=== PATIENT | male | born 1985 | race African-American/Black ===

== ENCOUNTER 2019-10-21 13:28 | Inpatient (IN) | payer MEDICARE, OTHER ==
[~2019-10-21] VITALS: Ht 190.5 cm; Wt 109.3 kg
--- NOTE | 2019-10-21 13:50 | NUR ---
DANY 60 FROM [address] STREETS C/O METH USED AND ACTING BIZARRE BEHAVIOR. PATIENT RESPONSIVE TO STIMULI. BREATHING EVEN AND UNLABORED, TACHYCARDIC. ATTACHED TO THE ACTIVITY DIRECTOR. SITTER AT BEDSIDE.
[2019-10-21] MEDS ORDERED: OLANZAPINE 10 MG VIAL IM ONE ×2 (14:42→15:00)
[2019-10-21] MEDS ORDERED: diphenhydrAMINE HCL 50 MG/ML VIAL ONE (15:00)
[2019-10-21] MEDS ORDERED: LORAZEPAM INJ 2 MG/ML VIAL ONE (15:00)
[2019-10-21] MEDS ORDERED: HALOPERIDOL LACTATE INJ 5 MG/ML VIAL ONE (15:08)
[2019-10-21] MEDS ORDERED: LORAZEPAM INJ 2 MG/ML VIAL IM ONE (15:30)
[2019-10-21] MEDS ORDERED: HALOPERIDOL LACTATE INJ 5 MG/ML VIAL IM ONE (15:30)
[2019-10-21] MEDS ORDERED: diphenhydrAMINE HCL 50 MG/ML VIAL IM ONE (15:30)
[2019-10-21 15:38] LABS: APPEARANCE,URINE Slightly Cloudy (CLEAR); BILIRUBIN,URINE SMALL (NEGATIVE); BLOOD, URINE Trace-intact Ery/uL (NEGATIVE); KETONES,URINE Negative (NEGATIVE); LEUKOCYTE ESTERASE ,URINE Negative (NEGATIVE); NITRITE, URINE Negative (NEGATIVE); PH,URINE 5.5 (5.0-8.0); PROTEIN,URINE 100 mg/dl (NEGATIVE); UGLUCOSE Negative (NEGATIVE)
[2019-10-21 15:39] LABS: COLOR,URINE DARK YELLOW (YELLOW)
[2019-10-21 15:45] LABS: BACTERIA,URINE Few /HPF (None Seen); SQUAMOUS EPITHELIAL CELL,UR Few /HPF (None Seen); URINE AMORPHOUS URATE Moderate /HPF (None Seen)
[2019-10-21 15:59] LABS: BASOPHILS % (AUTO) 0.2 % (0.0-2.0); EOSINOPHILS % (AUTO) 0.1 % (0.0-6.0); HEMATOCRIT 44 % (39-51); HEMOGLOBIN 14.2 g/dL (13.5-17.5); LYMPHOCYTES # (AUTO) 1.4 /CMM (0.8-4.8); LYMPHOCYTES % (AUTO) 8.5 % (20.0-44.0); MEAN CORPUSCULAR HGB CONC 32 g/dl (31.0-36.0); MEAN CORPUSCULAR VOLUME 101 fL (80-96); MONOCYTES # (AUTO) 1.2 /CMM (0.1-1.30); MONOCYTES % (AUTO) 7.5 % (2.0-12.0); NEUTROPHILS # (AUTO) 13.8 /CMM (1.8-8.9); NEUTROPHILS % (AUTO) 83.7 % (43.0-81.0); PLATELET COUNT (AUTO) 285 /CMM (150-450); RED BLOOD CELL COUNT(AUTO) 4.38 MIL/uL (4.5-6.0); WHITE BLOOD COUNT (AUTO) 16.5 K/uL (4.3-11.0)
[2019-10-21 16:06] LABS: CALCIUM, SERUM 10.7 mg/dL (8.5-10.1); CARBON DIOXIDE 15 mmol/L (21-32); CHLORIDE 102 mmol/L (98-107); CREATININE 2.3 mg/dL (0.6-1.3); GLUCOSE 104 mg/dL (74-106); POTASSIUM 4.3 mmol/L (3.5-5.1); SODIUM SERUM 141 mmol/L (136-145); UREA NITROGEN, BLOOD 20 mg/dL (7-18)
[2019-10-21 16:12] LABS: ALANINE AMINOTRANSFERASE 147 U/L (12-78); ALBUMIN 4.2 g/dL (3.4-5.0); ALKALINE PHOSPHATASE 125 U/L (46-116); ASPARTATE AMINOTRANSFERASE 138 U/L (15-37); BILIRUBIN,DIRECT 0.3 mg/dL (0.0-0.2); BILIRUBIN,TOTAL 0.7 mg/dL (0.2-1.0)
[2019-10-21] MEDS ORDERED: IV NS 0.9% 1,000 ML IV ONE ×2 (16:30→17:30)
[2019-10-21 16:33] LABS: ACETAMINOPHEN < 2 ug/ml (10-30); ALCOHOL, BLOOD < 3 mg/dL (0-0)
--- NOTE | 2019-10-21 16:58 | NUR ---
PATIENT'S STILL HYPOTENSIVE, DR. GOODRICH MADE AWARE AND GAVE AN ORDER FOR ANOTHER 1LITER OF NORMAL SALINE.
--- NOTE | 2019-10-21 18:35 | NUR ---
PATIENT ASLEEP, BUT EASILY AROUSABLE. NO DISTRESS NOTED. VITALS STABLE.
--- NOTE | 2019-10-21 19:53 | NUR ---
ENDORSED TO KATERINE SIMONS FOR JEAN MARIE.
--- NOTE | 2019-10-21 20:29 | NUR ---
COVID SWAB SAMPLE COLLECTED AND SENT TO THE LAB.
[2019-10-21] MEDS ORDERED: HYDROCODONE/APAP 5/325MG TABLET PO PRN (20:30)
[2019-10-21] MEDS ORDERED: ACETAMINOPHEN 325 MG TABLET PO PRN (20:30)
[2019-10-21] MEDS ORDERED: MAG HYDROX/AL HYDROX/SIMETH 30 ML UDC PO PRN (20:30)
[2019-10-21] MEDS ORDERED: ONDANSETRON HCL/PF 4 MG/2 ML VIAL IVP PRN (20:30)
[2019-10-21] MEDS ORDERED: MAGNESIUM HYDROXIDE 30 ML UDC PO PRN (20:30)
--- NOTE | 2019-10-21 20:55 | NUR ---
REPORT CALLED TO SHREDDED FILLER CIGAR MAKER MACHINE MARK. WILL TRANSPORT PT VIA ACLS PROTOCOL.
[2019-10-21 21:15] VITALS: BP 136/77
--- NOTE | 2019-10-21 21:15 | NUR ---
RN NOTE PT ARRIVED FROM ER VIA GURNEY ACCOMPANIED BY 2 RNS AND TRANSFERRED TO BED VIA 2 PERSON ASSIST. PT IS CURRENTLY SLEEPING BUT AROUSABLE TO TACTILE STIMULI. RESPIRATIONS EVEN AND UNLABORED WHILE ON 2L OF O2 VIA NC. WITH LOTT CATHETER IN PLACE DRAINING CLOUDY PINK TINGED URINE. WITH 20G IV ON LEFT AC. FLUSHES WELL. COMPREHENSIVE PHYSICAL ASSESSMENT COMPLETED. CALL LIGHT WITHIN REACH, BED ALARM ON, BED IN LOWEST POSITION, SAFETY MEASURES IN PLACE, WILL MONITOR PATIENT.
[2019-10-21 21:20] VITALS: BP 136/72
[2019-10-21] MEDS: IV NS 0.9% 1,000 ML IV PRN (22:09)
[2019-10-22] VITALS (7 sets, daily range): BP systolic 130–157; BP diastolic 66–90
[2019-10-22] MEDS ORDERED: diphenhydrAMINE HCL 50 MG/ML VIAL IM ONE (03:00)
[2019-10-22] MEDS ORDERED: HALOPERIDOL LACTATE INJ 5 MG/ML VIAL IM ONE (03:00)
[2019-10-22] MEDS ORDERED: LORAZEPAM INJ 2 MG/ML VIAL IM ONE (03:00)
--- NOTE | 2019-10-22 03:06 | NUR ---
RN NOTES AROUND 0250 HEARD BED ALARM AND A BANG; WENT TO CHECK BUT PATIENT SUDDENLY CAME OUT OF ROOM 113-2 WENT THROUGH THE PLASTIC THAT SEALS THE ROOM FOR ISOLATION PENDING COVID RESULT. PATIENT BECAME VERY AGGRESSIVE AND AGITATED RUNNING IN THE HALLWAY NAKED; RUN OUT OF THE FACILITY AND WALKED OUTSIDE OF THE FACILITY; KULWANT BUCKLEY CALLED
--- NOTE | 2019-10-22 03:06 | NUR ---
RN NOTE [facility]CEAN TRANSPORTATION INTERMEDIARY GEE AWARE OF PATIENT'S CONDITION WITH NEW ORDER FOR HALDOL 5MG IM, BENADRYL 25MG IM, AND ATIVAN 2MG IM TO BE GIVEN NOW. ORDERS NOTED AND CARRIED OUT WITH ASSISTANCE FROM JACQUARD CARD LACER AND 3 SECURITY PERSONNEL. PT NOTED WITH IV SITE, LOTT CATHETER AND TELE LEADS TO HAVE BEEN PULLED OUT. UNABLE TO REINSERT IV AND LOTT CATHETER AND PLACE TELE LEADS AT THIS TIME DUE TO PT'S AGITATION . [facility] TRANSPORTATION INTERMEDIARY AWARE. WILL MONITOR PATIENT AND REINSERT ONCE SAFETY IS MAINTAINED. IF FLUIDS HELD FOR NOW. Addendum: 10/22/19 at 0333 by XIAO LOCK RN LIME SLUDGE MIXER AWARE.
--- NOTE | 2019-10-22 03:10 | NUR ---
RN NOTE PT STILL SLIGHTLY AGITATED. ALSO NOTED WITH NEW SKIN TEAR ON LEFT HAND. SKIN ABRASION ON RIGHT KNEE NOTED TO BE BIGGER. MINIMAL BLEEDING NOTED. UNABLE TO DRESS WOUNDS AT THIS TIME DUE TO AGITATION AND AGRESSION.
--- NOTE | 2019-10-22 03:55 | NUR ---
RN NOTE PT IS SEDATED BUT EASILY AROUSABLE. ATTEMPTED TO REINSERT IV AND PLACE TELE LEADS BUT PT BECAME SLIGHTLY AGITATED. WILL TRY AGAIN. ABLE TO TAKE VITAL SIGNS WITH ASSISTANCE FROM RESIDENT PHYSICIAN.
--- NOTE | 2019-10-22 05:14 | NUR ---
RN NOTE PT IS SEDATED BUT EASILY AROUSABLE WITH TACTILE AND VERBAL STIMULI. TELE LEADS PLACED ON PATIENT SHOWING SINUS RHYTHM WITH HEART RATE 88. REINSERTED 24G IV ON RIGHT FOOT WITH GOOD VENOUS RETURN. IV FLUIDS RESUMED @ 125ML/HOUR ORDERED. LOTT CATHETER REINSERTED WITHOUT DIFFICULTY AND WITHOUT GOOD URINE OUTPUT NOTED. URINE IS STILL CLOUDY AND PINK TINGED. WILL CONTINUE TO MONITOR PATIENT. Addendum: 10/22/19 at 0643 by XIAO LOCK RN ERROR. GOOD URINE OUTPUT NOTED.
[2019-10-22 06:24] LABS: BASOPHILS % (AUTO) 0.1 % (0.0-2.0); HEMATOCRIT 39 % (39-51); HEMOGLOBIN 12.9 g/dL (13.5-17.5); LYMPHOCYTES # (AUTO) 1.1 /CMM (0.8-4.8); LYMPHOCYTES % (AUTO) 6.3 % (20.0-44.0); MEAN CORPUSCULAR HGB CONC 33 g/dl (31.0-36.0); MEAN CORPUSCULAR VOLUME 98 fL (80-96); MONOCYTES # (AUTO) 1.2 /CMM (0.1-1.30); MONOCYTES % (AUTO) 7.1 % (2.0-12.0); NEUTROPHILS # (AUTO) 14.7 /CMM (1.8-8.9); NEUTROPHILS % (AUTO) 86.5 % (43.0-81.0); PLATELET COUNT (AUTO) 211 /CMM (150-450); RED BLOOD CELL COUNT(AUTO) 3.94 MIL/uL (4.5-6.0)
[2019-10-22 07:03] LABS: ALBUMIN 3.6 g/dL (3.4-5.0); BILIRUBIN,TOTAL 0.9 mg/dL (0.2-1.0); CALCIUM, SERUM 8.7 mg/dL (8.5-10.1); CREATININE 2.9 mg/dL (0.6-1.3); PHOSPHORUS 5.4 mg/dL (2.5-4.9); POTASSIUM 4.2 mmol/L (3.5-5.1); TOTAL PROTEIN, SERUM 8.3 g/dL (6.4-8.2)
[2019-10-22 07:08] LABS: MAGNESIUM 4.6 mg/dL (1.8-2.4)
--- NOTE | 2019-10-22 07:30 | NUR ---
RN OPENING NOTES RECEIVED PATIENT SLEEPING IN BED. VS STABLE WITH NO SIGNS OF ACUTE DISTRESS. PATIENT HAS A HISTORY OF AGGRESSIVE BEHAVIOR, A PERMANENT SITTER IS WATCHING THE PATIENT THROUGHOUT THE SHIFT. PATIENT IS ON EXTERNAL TELEMONITOR; SR HR 90. PATIENT HAS 125 ML/HR OF NS ON 20G IV. ALL SAFETY MEASURES IN PLACE AT THIS TIME. BED LOCKED IN THE LOWEST POSITION. SIDE RAILS UP X2. CALL LIGHT WITHIN REACH. ALL NEEDS RENDERED AT THIS TIME.
[2019-10-22] MEDS: LORAZEPAM INJ 2 MG/ML VIAL IV PRN (08:58)
[2019-10-22] MEDS: IV NS 0.9% 1,000 ML IV PRN ×2 (08:58→17:16)
--- NOTE | 2019-10-22 09:45 | NUR ---
critical VALUE OF (Mg 4.6) HAS BEEN REPORTED TO DOCTOR ROSALINDA MIJARES.
--- NOTE | 2019-10-22 15:47 | NUR ---
Social service consult requested by MD for homelessness. Per chart review and MD notes, pt is a 33-year-old -[place] male sent to the emergency department yesterday from street via rescue ambulance for evaluation of bizarre behavior. Patient was agitated, admitted to amphetamine usage. Due to his aggressiveness patient was sedated in the ER. Patient was found to be in rhabdomyolysis, initial fluid resuscitation started in the ER. Because patient is homeless, ER physician ordered COVID19 swab. MANAGER SAP was informed by case managers Michael, pt is sedated and not able to provide any information at this time. MANAGER SAP to follow up with the pt tomorrow. Pt is pending COVID-19 results.
--- NOTE | 2019-10-22 18:06 | NUR ---
RN CLOSING NOTES PATIENT SLEEPING IN BED. VS STABLE WITH NO SIGNS OF ACUTE DISTRESS. PATIENT HAS A HISTORY OF AGGRESSIVE BEHAVIOR, A PERMANENT SITTER IS WATCHING THE PATIENT. PATIENT IS ON EXTERNAL TELEMONITOR; SR HR 90. PATIENT HAS 125 ML/HR OF NS ON 20G IV ON L LOWER FOOT. ALL SAFETY MEASURES IN PLACE AT THIS TIME. BED LOCKED IN THE LOWEST POSITION. SIDE RAILS UP X2. CALL LIGHT WITHIN REACH. ALL NEEDS RENDERED AT THIS TIME.
--- NOTE | 2019-10-22 20:00 | NUR ---
PUPIL PERSONNEL WORKER NOTE RECEIVED PATIENT SLEEPING IN BED, BREATHING NORMAL NO SOB NOTED. RESPIRATION EVEN NON LABORED. TELE MONITOR READING SR IN 80'S. IV SITE LAC G#20 INTACT PATENT FLUSHING WELL. F/C INTACT DARNING PINK TINGED URINE WITH GRAVITY. ABD SOFT AND NON DISTENDED. SKIN WARM AND DRY TO TOUCH. ALL SAFETY MEASURES IN PLACE, BED IN LOW AND LOCKED POSITION. CALL LIGHT WITHIN REACH. SITTER AT BED SIDE. WILL CONT TO MONITOR.
[2019-10-23] VITALS (7 sets, daily range): BP systolic 110–149; BP diastolic 64–89
[2019-10-23] MEDS: IV NS 0.9% 1,000 ML IV PRN ×2 (02:08→16:27)
--- NOTE | 2019-10-23 06:11 | NUR ---
SECURITY TEST ENGINEER NOTES PATIENT RESTED WELL THROUGHOUT THE SHIFT. NO S/S OF ACUTE DISTRESS NOTED. BREATHING NORMAL NO SOB NOTED. SITTER AT BED SIDE. IV SITE PATENT INTACT NS RUNNING WELL. VITAL SIGNS WNL. NO FEVER NOTED. NO PRN'S WERE GIVEN. F/C INTACT PINK COLOR URINE DARNING WITH GRAVITY. KEPT CLEAN AND COMFORTABLE. ALL NEEDS ARE ATTENDED. ALL SAFETY MEASURES IN PLACE, BED IN LOW AND LOCKED POSITION. CALL LIGHT WITHIN REACH. WILL ENDORSE TO AM NURSE FOR JEAN MARIE.
--- NOTE | 2019-10-23 07:45 | NUR ---
K 12 PRINCIPAL OPENING NOTE RECEIVED PATIENT SLEEPING IN BED. AROUSABLE. NO CARDIAC OR RESPIRATORY DISTRESS NOTED. NO SOB NOTED. SATURATING WELL ON ROOM AIR. BREATHING EVEN AND UNLABORED. TELE MONITOR READING NSR IN 80'S. [facility] NURSE SUPERVISOR NURSE PT ACCIDENTALLY PULLED OUT HIS IV ON L AC. NO BLEEDING ON SITE NOTED. HOWEVER, PER PT, HE DOESNT WANT HIS IV TO BE RE-INSERTED RIGHT NOW. AND TOLD ME TO COME BACK LATER. LOTT CATH IN PLACE. INTACT AND PATENT AND DRAINING WITH CLEAR YELLOW URINE. SAFETY PRECAUTIONS IN PLACE, BED IN LOW AND LOCKED POSITION. SIDE RAILS UP X2. CALL LIGHT WITHIN REACH. SITTER AT BED SIDE. WILL CONT TO MONITOR.
--- NOTE | 2019-10-23 09:42 | NUR ---
WOUND CARE CONSULT: PT PRESENTS WITH LEFT PALM SKIN TEAR AND HEALING DRY ABRASION TO RT KNEE, PRESENT ON ADMISSION. PT DENIES NEED (REFUSED) TO TURN FOR FULL SKIN ASSESSMENT OF BACK AND BUTTOCKS. RECOMMENDATIONS MADE FOR SKIN PROTECTION AND WOUND CARE. DISCUSSED WITH NURSING STAFF. WILL SEE PRN. ALONZO IN AGREEMENT WITH PLAN OF CARE. Addendum: 10/23/19 at 0944 by ELEONORA MENEZES WNDNU Amended: Links added.
--- NOTE | 2019-10-23 11:15 | NUR ---
TRANSFER TO [facility] [place] PT TRANSFERRED TO [facility]. REPORT GIVEN TO SANCHEZ SIMONS. PT IN STABLE CONDITION. STILL AWAITING FOR MIDLINE CATH INSERTION.
--- NOTE | 2019-10-23 11:20 | NUR ---
Received patient via [facility] [employer]. Patient sedated (positive for drugs), responsive to name and touch. On room air saturation above 95%, VS are stable and within baseline. Patient has no IV line ; midline pending. Will continue to monitor
--- NOTE | 2019-10-23 15:10 | NUR ---
Midline inserted , intact patent and flushing well. Will administrate fluids as ordered.
--- NOTE | 2019-10-23 15:16 | NUR ---
RECRUITING SCHEDULER consulted with RONAK Mae and was informed pt is still sedated and unable to participate in an assessment at this time. Warm Handoff provided to SW to f/u on October 25.
[2019-10-23 15:19] LABS: BASOPHILS # (AUTO) 0.1 /CMM (0.0-0.2); BASOPHILS % (AUTO) 0.5 % (0.0-2.0); EOSINOPHILS % (AUTO) 0.3 % (0.0-6.0); HEMATOCRIT 34 % (39-51); HEMOGLOBIN 11.2 g/dL (13.5-17.5); LYMPHOCYTES # (AUTO) 1.9 /CMM (0.8-4.8); LYMPHOCYTES % (AUTO) 12.9 % (20.0-44.0); MEAN CORPUSCULAR HGB CONC 33 g/dl (31.0-36.0); MEAN CORPUSCULAR VOLUME 98 fL (80-96); MONOCYTES # (AUTO) 1.3 /CMM (0.1-1.30); MONOCYTES % (AUTO) 8.8 % (2.0-12.0); NEUTROPHILS # (AUTO) 11.3 /CMM (1.8-8.9); NEUTROPHILS % (AUTO) 77.5 % (43.0-81.0); PLATELET COUNT (AUTO) 215 /CMM (150-450); RED BLOOD CELL COUNT(AUTO) 3.47 MIL/uL (4.5-6.0); WHITE BLOOD COUNT (AUTO) 14.6 K/uL (4.3-11.0)
[2019-10-23 15:56] LABS: CREATININE 6.8 mg/dL (0.6-1.3); PHOSPHORUS 5.9 mg/dL (2.5-4.9); POTASSIUM 4.1 mmol/L (3.5-5.1)
--- NOTE | 2019-10-23 16:41 | NUR ---
Call from lab ; critical Mg 4.0, trending down . Yesterday was 4.6. Jim Ramirez DNP notified
--- NOTE | 2019-10-23 18:55 | NUR ---
Patient in bed , awake , eating dinner at this moment . Breathing unlabored and even on room air , VS are stable. DOMINIC midline with ongoing fluids as ordered. All needs attended, patient kept comfortable. F/c in place with output 800ml. Bed alarm on, safety precautions implemented and call light within reach. Will endorse to next shift for JEAN MARIE.
--- NOTE | 2019-10-23 19:39 | NUR ---
CREATIVE ARTS MUSIC THERAPIST OPENING NOTES PATIENT RECEIVED RESTING IN BED, A/O X1 LETHARGIC IN HIGH FOWLERS POSITION. STABLE ON A WITH BREATHING EVEN AND UNLABORED, NO SOB NOTED. NO SIGNS OF ACUTE DISTRESS. NO COMPLAINTS OF PAIN OR DISCOMFORT. NO SIGNS OF ACUTE DISTRESS- NO FACIAL GRIMACING NOTED. TELE MONITOR READING SR. LOTT NOTED AND IN PLACE WITH BLOOD TINTED URINE. DOMINIC MIDLINE IN PLACE RUNNING NS @ 125 MLL/HR. SAFETY PRECAUTIONS IN PLACE WITH BED IN LOWEST POSITION, CALL LIGHT WITHIN REACH, BREAKS ON, SIDE RAILS UP. WILL CONTINUE TO MONITOR THROUGHOUT THE SHIFT.
[2019-10-24] VITALS: BP_SYST 110; BP_SYST 129; BP_DIAS 60; BP_DIAS 67
[2019-10-24] MEDS: IV NS 0.9% 1,000 ML IV PRN (00:45)
[2019-10-24 04:00] VITALS: BP 132/56
--- NOTE | 2019-10-24 06:46 | NUR ---
POULTRY HANGER CLOSING NOTES PATIENT RESTING IN BED, A/O X1 LETHARGIC IN HIGH FOWLERS POSITION. STABLE ON A WITH BREATHING EVEN AND UNLABORED, NO SOB NOTED. NO SIGNS OF ACUTE DISTRESS. NO COMPLAINTS OF PAIN OR DISCOMFORT. NO SIGNS OF ACUTE DISTRESS- NO FACIAL GRIMACING NOTED. TELE MONITOR READING SR. LOTT NOTED AND IN PLACE WITH BLOOD TINTED URINE. DOMINIC MIDLINE IN PLACE RUNNING NS @ 125 MLL/HR. SAFETY PRECAUTIONS IN PLACE WITH BED IN LOWEST POSITION, CALL LIGHT WITHIN REACH, BREAKS ON, SIDE RAILS UP. ALL NEEDS ATTENDED TO. WILL ENDORSE TO ONCOMING SHIFT ABOUT JEAN MARIE.
[2019-10-24 07:01] LABS: ALBUMIN 2.7 g/dL (3.4-5.0); BILIRUBIN,DIRECT 0.2 mg/dL (0.0-0.2); BILIRUBIN,TOTAL 0.6 mg/dL (0.2-1.0); CALCIUM, SERUM 7.4 mg/dL (8.5-10.1); MAGNESIUM 3.6 mg/dL (1.8-2.4); PHOSPHORUS 4.1 mg/dL (2.5-4.9); POTASSIUM 3.5 mmol/L (3.5-5.1); TOTAL PROTEIN, SERUM 6.8 g/dL (6.4-8.2)
[2019-10-24 07:03] LABS: CREATININE 7.6 mg/dL (0.6-1.3)
--- NOTE | 2019-10-24 07:30 | NUR ---
PT RECEIVED RESTING COMFORTABLY IN BED. NO S/S OR C/O PAIN OR DISTRESS NOTED. SIDE RAILS UP X2, CALL LIGHT LEFT WITHIN REACH. WILL CONTINUE PLAN OF CARE.
[2019-10-24 08:04] VITALS: BP 147/84
[2019-10-24 08:43] LABS: BASOPHILS % (AUTO) 0.2 % (0.0-2.0); EOSINOPHILS % (AUTO) 0.6 % (0.0-6.0); HEMATOCRIT 33 % (39-51); HEMOGLOBIN 11.1 g/dL (13.5-17.5); LYMPHOCYTES # (AUTO) 1.4 /CMM (0.8-4.8); LYMPHOCYTES % (AUTO) 15.5 % (20.0-44.0); MEAN CORPUSCULAR HGB CONC 34 g/dl (31.0-36.0); MEAN CORPUSCULAR VOLUME 98 fL (80-96); MONOCYTES # (AUTO) 0.8 /CMM (0.1-1.30); NEUTROPHILS # (AUTO) 6.7 /CMM (1.8-8.9); NEUTROPHILS % (AUTO) 74.7 % (43.0-81.0); PLATELET COUNT (AUTO) 172 /CMM (150-450); RED BLOOD CELL COUNT(AUTO) 3.34 MIL/uL (4.5-6.0); WHITE BLOOD COUNT (AUTO) 8.9 K/uL (4.3-11.0)
--- NOTE | 2019-10-24 11:00 | NUR ---
IV INSERTION AFTER PT IV FOUND TO BE DISLODGED. IV INTACT, PRESSURE DRESSING APPLIED TO SITE. NEW IV INSERTED. PT ORIENTED TO NEW SITE. NEEDS FREQUENT REORIENTATION.
[2019-10-24] MEDS: Sodium Bicarbonate 100 MEQ in IV D5/0.45 NACL 1,000 ML IV PRN ×2 (12:30→19:40)
[2019-10-24 15:40] LABS: APPEARANCE,URINE CLOUDY (CLEAR); BILIRUBIN,URINE NEGATIVE (NEGATIVE); BLOOD, URINE LARGE Ery/uL (NEGATIVE); COLOR,URINE YELLOW (YELLOW); KETONES,URINE NEGATIVE (NEGATIVE); LEUKOCYTE ESTERASE ,URINE SMALL (NEGATIVE); NITRITE, URINE NEGATIVE (NEGATIVE); PH,URINE 5.5 (5.0-8.0); PROTEIN,URINE >=300 mg/dl (NEGATIVE); UGLUCOSE NEGATIVE (NEGATIVE); UROBILINOGEN,URINE 0.2 EU/dL (0.2)
[2019-10-24 16:12] LABS: BACTERIA,URINE 1+ /HPF (None Seen); SQUAMOUS EPITHELIAL CELL,UR 0-2 /HPF (None Seen); URIC ACID CRYSTALS,URINE Few /HPF (None Seen); WBC,URINE 0-2 /HPF (0-3)
[2019-10-24 16:15] LABS: CREATININE, URINE 88.7 MG/DL (30.0-125.0); EOSINOPHIL,URINE Few; URINE TOTAL PROTEIN 360.8 mg/dL (0-11.9)
[2019-10-24] MEDS ORDERED: HALOPERIDOL LACTATE INJ 5 MG/ML VIAL IM ONE (17:00)
--- NOTE | 2019-10-24 18:13 | NUR ---
CHANGE OF SHIFT REPORT PT RESTING COMFORTABLY IN BED. NO S/S OR C/O PAIN OR DISTRESS NOTED. SIDE RAILS UP X2, CALL LIGHT LEFT WITHIN REACH. PT KEPT CLEAN, DRY, AND COMFORTABLE. NO SIGNIFICANT CHANGES SINCE PREVIOUS SHIFT. WILL GIVE REPORT TO ADA SIMONS.
--- NOTE | 2019-10-24 19:10 | NUR ---
VOCATIONAL REHAB CONSULTANT NOTES RECEIVED PT IN BED RESTING WITH SITTER AT BEDSIDE. PT A/O X1. PT STABLE ON RA BREATHING EVEN AND UNLABORED, NO SOB NOTED. NO COMPLAINTS OF PAIN OR DISCOMFORT. PT WITH LOTT NOTED AND IN PLACE WITH BLOOD TINTED URINE. D512NS WITH BICARB @ 180 CC/HR. SAFETY PRECAUTIONS IN PLACE WITH BED IN LOWEST POSITION, CALL LIGHT WITHIN REACH,WILL CONTINUE TO MONITOR.
[2019-10-24 20:00] VITALS: BP 150/83
--- NOTE | 2019-10-24 23:00 | NUR ---
MS RN NOTES PT FC REMOVED. CONDOM CATH PUT IN PLACE. PT REFUSED TO HAVE NEW FC TO BE INSERTED. WILL CONTINUE OT MONITOR.
[2019-10-25] MEDS: Sodium Bicarbonate 100 MEQ in IV D5/0.45 NACL 1,000 ML IV PRN ×2 (01:24→14:07)
--- NOTE | 2019-10-25 05:48 | NUR ---
MS RN NOTES PT REFUSED MORNING LAB DRAW. LAB WILL TRY AGAIN LATER IN THE AM. WILL CONTINUE TO MONITOR.
--- NOTE | 2019-10-25 07:34 | NUR ---
MS RN NOTES RECEIVED PATIENT IN BED SLEEPING COMFORTABLY. PATIENT IN NO ACUTE DISTRESS. NO SOB NOTED. PATIENT BREATHING IS EVEN AND UNLABORED. PATIENT WITH 1:1 SITTER. PATIENT BED ALARM IS ON. SAFETY PRECAUTIONS IN PLACE. PATIENT BED IS LOCKED AND IN LOWEST POSITION. CALL LIGHT WITHIN REACH. WILL CONTINUE TO MONITOR.
--- NOTE | 2019-10-25 07:40 | NUR ---
MATURITY CHECKER NOTES RECEIVED PT IN BED RESTING WITH SITTER AT BEDSIDE. PT A/O X1. PT STABLE ON RA BREATHING EVEN AND UNLABORED, NO SOB NOTED. NO COMPLAINTS OF PAIN OR DISCOMFORT. D512NS WITH BICARB @ 180 CC/HR. SAFETY PRECAUTIONS IN PLACE WITH BED IN LOWEST POSITION, CALL LIGHT WITHIN REACH,WILL ENDORSE TO ONCOMING NURSE FOR JEAN MARIE.
[2019-10-25 08:00] VITALS: BP 141/77
--- NOTE | 2019-10-25 08:44 | NUR ---
MS RN NOTE PATIENT INITIALLY AGREED TO LAB DRAW. AFTER A COUPLE OF UNSUCCESSFUL ATTEMPTS BY THE QUALITY AUDITOR, THE PATIENT YELLED AND STATED " I DONT WANT YOU TO TRY AGAIN, GET OUT OF HERE, I DONT WANT MY BLOOD DRAWN ANYMORE".
--- NOTE | 2019-10-25 10:00 | NUR ---
MS RN NOTE CRITICAL LAB VALUE CKMB 11.[address] OTERO AND ROSALINDA THOMAS MADE AWARE. NO NEW ORDERS AT THIS TIME. WILL CONTINUE TO MONITOR.
--- NOTE | 2019-10-25 11:26 | NUR ---
MS RN NOTE PATIENT WITH NO LOTT CATHETER AT THIS TIME. PATIENT ATTEMPTED TO REMOVE. PER ROSALINDA THOMAS ORDER FOR NO LOTT CATHETER NEEDED AT THIS TIME.
[2019-10-25 12:43] LABS: BASOPHILS # (AUTO) 0.1 /CMM (0.0-0.2); BASOPHILS % (AUTO) 0.6 % (0.0-2.0); EOSINOPHILS % (AUTO) 0.7 % (0.0-6.0); HEMATOCRIT 33 % (39-51); HEMOGLOBIN 11.3 g/dL (13.5-17.5); LYMPHOCYTES # (AUTO) 1.4 /CMM (0.8-4.8); LYMPHOCYTES % (AUTO) 13.7 % (20.0-44.0); MEAN CORPUSCULAR HGB CONC 34 g/dl (31.0-36.0); MEAN CORPUSCULAR VOLUME 96 fL (80-96); MONOCYTES # (AUTO) 1.1 /CMM (0.1-1.30); NEUTROPHILS # (AUTO) 7.3 /CMM (1.8-8.9); PLATELET COUNT (AUTO) 228 /CMM (150-450); RED BLOOD CELL COUNT(AUTO) 3.43 MIL/uL (4.5-6.0); WHITE BLOOD COUNT (AUTO) 9.9 K/uL (4.3-11.0)
[2019-10-25 12:54] LABS: CALCIUM, SERUM 7.8 mg/dL (8.5-10.1); MAGNESIUM 3.1 mg/dL (1.8-2.4); PHOSPHORUS 4.2 mg/dL (2.5-4.9); POTASSIUM 3.9 mmol/L (3.5-5.1)
[2019-10-25 12:56] LABS: CREATININE 8.2 mg/dL (0.6-1.3)
--- NOTE | 2019-10-25 13:00 | NUR ---
MS RN NOTE ROSALINDA THOMAS CAME AND EVALUATED PATIENT. NOTED WITH RIGHT FLANK WOUND. PER ROSALINDA ORDER FOR BACTROBAN FOR WOUND AND MEPILEX ON TOP.
--- NOTE | 2019-10-25 14:00 | NUR ---
MS RN NOTE PATIENT CREATININE WAS 8.2, NOT CALLED BY LAB. ROSALINDA THOMAS MADE AWARE.
[2019-10-25] MEDS: MUPIROCIN OINT 2% 22 GM TUBE TP SCH (14:05)
--- NOTE | 2019-10-25 18:11 | NUR ---
MS RN NOTE PATIENT REFUSING AFTERNOON VITAL SIGNS. PATIENT GOT AGITATED AND STATED " YOU BETTER NOT DO VITAL SIGNS ON ME, JUST LEAVE ME ALONE". EDUCATED RISKS VS BENEFITS. PATIENT CONTINUED TO REFUSE.
--- NOTE | 2019-10-25 18:57 | NUR ---
MS RN CLOSING NOTES PATIENT IN BED RESTING COMFORTABLY. PATIENT IN NO ACUTE DISTRESS. NO SOB NOTED. PATIENT BREATHING IS EVEN AND UNLABORED. PATIENT WITH 1:1 SITTER. PATIENT BED ALARM IS ON. PATIENT REFUSED WOUND TREATMENT THROUGHOUT SHIFT DESPITE RISKS VS BENEFITS IN IMPORTANCE TO COMPLIANCE. PATIENT CONTINUED TO REFUSE. SAFETY PRECAUTIONS IN PLACE. PATIENT BED IS LOCKED AND IN LOWEST POSITION. CALL LIGHT WITHIN REACH. WILL ENDORSE CARE TO PM SHIFT FOR JEAN MARIE.
--- NOTE | 2019-10-25 19:10 | NUR ---
MOTOR BLOCK MECHANIC NOTES RECEIVED PT IN BED RESTING WITH SITTER AT BEDSIDE. PT A/O X1. PT STABLE ON RA BREATHING EVEN AND UNLABORED, NO SOB NOTED. NO COMPLAINTS OF PAIN OR DISCOMFORT. D512NS WITH BICARB @ 180 CC/HR. SAFETY MEASURES IN PLACE WITH BED IN LOWEST POSITION WITH SIDE RAILS UP X2. CALL LIGHT WITHIN REACH. WILL CONTINUE TO MONITOR. Addendum: 10/25/19 at 2058 by BRADEN HENDERSON RN MS RN NOTES
[2019-10-25 20:00] VITALS: BP 159/92
--- NOTE | 2019-10-25 20:59 | NUR ---
MS RN NOTES PT REFUSED PHOTOS AT THIS TIME. WILL CONTINUE TO MONITOR.
[2019-10-25] MEDS: LORAZEPAM INJ 2 MG/ML VIAL IV PRN (23:29)
[2019-10-26] MEDS: MUPIROCIN OINT 2% 22 GM TUBE TP SCH ×2 (00:09→12:18)
--- NOTE | 2019-10-26 01:21 | NUR ---
MS RN NOTES PT NOTED IV ACCIDENTLY PULLED OUT. IV LINE TRIED AND UNSUCCESSFUL. MD MADE AWARE. ORDER FOR MIDLINE. PT ON NA BICARB D5 1/2 NS. MIDLINE MAY NOT BE PUT IN UNTIL AM, WILL HAVE ANOTHER NURSE TRY TO START IV LINE PRIOR TO MIDLINE. MD AWARE. WILL CONTINUE TO MONITOR.
--- NOTE | 2019-10-26 02:00 | NUR ---
MS RN NOTES MULTIPLE IV INSERTIONS ATTEMPTS, UNSUCCESSFUL. AWARE. AWAITING MIDLINE INSERTION IN AM. WILL CONTINUE TO MONITOR.
[2019-10-26] MEDS ORDERED: LORAZEPAM 1 MG TABLET PO ONE (02:30)
--- NOTE | 2019-10-26 04:00 | NUR ---
MS RN NOTES IV ATIVAN 1MG PULLED OUT TO BE GIVEN TO PT. PT NOTED WITH IV DISLODGED AND PULLED OUT. MEDICATION NOT GIVEN NEW IV LINE NOT ABLE TO PUT IN. 1MG ATIVAN WASTED. TOTAL OF 2 MG WASTED. WILL CONTINUE TO MONITOR.
--- NOTE | 2019-10-26 07:31 | NUR ---
SLITTER SCORER CUT OFF OPERATOR NOTES RECEIVED PT IN BED RESTING WITH SITTER AT BEDSIDE. PT A/O X1-2 ABLE TO MAKE NEEDS KNOWN. PT STABLE ON RA BREATHING EVEN AND UNLABORED, NO SOB OR ACUTE DISTRESS NOTED THROUGHOUT SHIFT. PT KEPT CLEAN, DRY, AND COMFORTABLE. NO COMPLAINTS OF PAIN OR DISCOMFORT. PT STILL AWAITING MIDLINE INSERTION. SAFETY MEASURES IN PLACE WITH BED IN LOWEST POSITION WITH SIDE RAILS UP X2. CALL LIGHT WITHIN REACH. WILL ENDORSE TO ONCOMING NURSE FOR JEAN MARIE. Addendum: 10/26/19 at 0733 by BRADEN HENDERSON RN RN NOTES
[2019-10-26 08:00] VITALS: BP 159/92
--- NOTE | 2019-10-26 08:00 | NUR ---
MS RN OPENING NOTES RECEIVED PT IN BED, AROUSABLE. AOX1. HOWEVER, HE IS CONFUSED, HE KNOWS HE IS IN THE HOSPITAL BUT HE DOESNT KNOW WHICH ONE. HE ALSO DOESNT KNOWW TODAYS DATE OR THE DAY OF THE WEEK. HE SLEEPS INTERMITTENTLY. PT RESTING WITH SITTER AT BEDSIDE. PT STABLE ON RA BREATHING EVEN AND UNLABORED, NO SOB NOTED. SATURATING WELL ON ROOM AIR. NO COMPLAINTS OF PAIN OR DISCOMFORT. PT IS AWAITING FOR MIDLINE INSERTION. NIGHT SIHIFT NURSE OBTAINED ORDERS PRIOE TO START OF DAY SHIFT. SAFETY MEASURES IN PLACE WITH BED IN LOWEST POSITION WITH SIDE RAILS UP X2. CALL LIGHT WITHIN REACH. WILL CONTINUE TO MONITOR.
[2019-10-26 08:06] LABS: COMPLEMENT C3, SERUM 113 mg/dL (82-167); COMPLEMENT C4, SERUM 25 mg/dL (14-44)
--- NOTE | 2019-10-26 11:30 | NUR ---
MIDLINE MIDLINE INSERTED. G20 ON ASHLEY. INTACT PATENT AND FLUSHING WELL.
--- NOTE | 2019-10-26 11:45 | NUR ---
SODIUM BICARB INFUSION SODIUM BICARB INFUSION CONTINUED PER MD ORDERS. RIGHT AFTER MIDLINE INSERTED.
--- NOTE | 2019-10-26 13:43 | NUR ---
Social Service Note: SW received handoff for this pt who is a 33 year old male and homeless. SW attempted to meet with the pt at bedside but the pt was asleep and refused to participate. NIKKIE Fowler is the sitter for this room and he stated that the pt remains asleep and only wakes up to eat. He states that the pt is uncooperative. SANDEEP informed the pt that since he is not cooperating at this time, she will leave homeless and substance resources in his chart under the green Care tab.
--- NOTE | 2019-10-26 14:30 | NUR ---
SODIUM BICARB PER DR. THOMAS CONTINUE WITH SODIUM BICARB INFUSION. PHARMACY NOTIFIED.
[2019-10-26] MEDS: LORAZEPAM INJ 2 MG/ML VIAL IV PRN (15:45)
[2019-10-26] MEDS: Sodium Bicarbonate 100 MEQ in IV D5/0.45 NACL 1,000 ML IV PRN ×2 (15:46→18:58)
[2019-10-26 16:00] VITALS: BP 172/108
--- NOTE | 2019-10-26 16:30 | NUR ---
RESTLESSNESS/AGITATION PT VERY RESTLESS AND AGITATED. HE KEEPS TRYING TO GET UP AND THEN HE WOULD LAY DOWN ON THE FLOOR AND STAY THERE FOR A COUPLE OF MINUTES. THEREFORE PUTTING HIS IV LINE AT RISK TO BE PULLED OUT. PT IS ALSO A FALL RISK. ADMINISTERED ATIVAN PRN. AND WAS NOTED TO BE EFFECTIVE. PT CALMED DOWN AND LAYED IN BED AND FELL ASLEEP.
--- NOTE | 2019-10-26 18:10 | NUR ---
MS RN CLOSING NOTES PT IN BED SLEEPING BUT AROUSABLE. AOX1. HOWEVER, HE IS CONFUSED, PT SLEEPS INTERMITTENTLY. PT RESTING WITH SITTER AT BEDSIDE. PT STABLE ON RA BREATHING EVEN AND UNLABORED, NO SOB NOTED. SATURATING WELL ON ROOM AIR. NO COMPLAINTS OF PAIN OR DISCOMFORT. KEPT PT CLEAN AND COMFORTABLE. REDIRECTED PT IF NEEDED. KEPT CALM. ALL NEEDS ATTENDED. SAFETY MEASURES IN PLACE WITH BED IN LOWEST POSITION WITH SIDE RAILS UP X2. CALL LIGHT WITHIN REACH. WILL ENDORSE TO NEXT SHIFT.
--- NOTE | 2019-10-26 19:44 | NUR ---
MS RN NOTES PATIENT RECEIVED IN BED SLEEPING. AWAKEN BY TOUCH, ALERT AND ORIENTED X 1-2 WITH PERIOD OF CONFUSION. PATIENT ON ROOM AIR, WITH NO SIGNS OF ACUTE RESPIRATORY DISTRESS AT THIS TIME, NO SOB NOTED, AND WITH EVEN NON-LABORED BREATHING. PATIENT PRESENTS NO SIGNS OF DISCOMFORT OR PAIN AT THIS TIME. RIGHT UPPER ARM MIDLINE INTACT AND PATENT. SAFETY PRECAUTIONS IN PLACE WITH THE BED IN THE LOWEST POSITION, BILATERAL SIDE RAILS UP, BED ALARM ON, AND CALL LIGHT WITHIN EASY REACH OF THE PATIENT. WILL CONTINUE TO MONITOR PATIENT.
[2019-10-26 20:00] VITALS: BP 157/88
[2019-10-26 23:43] LABS: BASOPHILS % (AUTO) 0.3 % (0.0-2.0); EOSINOPHILS % (AUTO) 1.1 % (0.0-6.0); HEMATOCRIT 33 % (39-51); HEMOGLOBIN 11.1 g/dL (13.5-17.5); LYMPHOCYTES # (AUTO) 1.9 /CMM (0.8-4.8); LYMPHOCYTES % (AUTO) 17.9 % (20.0-44.0); MEAN CORPUSCULAR HGB CONC 34 g/dl (31.0-36.0); MEAN CORPUSCULAR VOLUME 96 fL (80-96); MONOCYTES # (AUTO) 1.2 /CMM (0.1-1.30); MONOCYTES % (AUTO) 11.6 % (2.0-12.0); NEUTROPHILS # (AUTO) 7.3 /CMM (1.8-8.9); NEUTROPHILS % (AUTO) 69.1 % (43.0-81.0); PLATELET COUNT (AUTO) 255 /CMM (150-450); RED BLOOD CELL COUNT(AUTO) 3.41 MIL/uL (4.5-6.0); WHITE BLOOD COUNT (AUTO) 10.6 K/uL (4.3-11.0)
[2019-10-26 23:57] LABS: ALBUMIN 2.4 g/dL (3.4-5.0); BILIRUBIN,TOTAL 0.4 mg/dL (0.2-1.0); MAGNESIUM 2.4 mg/dL (1.8-2.4); PHOSPHORUS 3.3 mg/dL (2.5-4.9); POTASSIUM 4.3 mmol/L (3.5-5.1); TOTAL PROTEIN, SERUM 6.7 g/dL (6.4-8.2)
[2019-10-27] MEDS: MUPIROCIN OINT 2% 22 GM TUBE TP SCH ×2 (00:22→12:40)
[2019-10-27] MEDS: LORAZEPAM INJ 2 MG/ML VIAL IV PRN (01:48)
--- NOTE | 2019-10-27 01:48 | NUR ---
MS RN NOTES PATIENT REQUESTED ATIVAN STATING HE CANNOT SLEEP. ADMINISTERED PRN 1mg ATIVAN. WILL CONTINUE TO MONITOR PATIENT.
--- NOTE | 2019-10-27 04:45 | NUR ---
MS RN NOTES PATIENT WENT INTO THE SHOWER TURNED ON THE WATER AND SAT ON THE FLOOR OF THE SHOWER. INFORMED PATIENT MULTIPLE TIMES MADE TO GET OUT OF THE SHOWER, PER PATIENT STATING, "I DON'T WANT TOO!" TURNED OFF THE SHOWER, AND PATIENT TURNED THE SHOWER BACK ON STATING "I WANT TO STAY HERE, LEAVE ME ALONE AND CLOSE THE DOOR." PATIENT WAS AGITATED , AGGRAVATED, AND UNCOOPERATIVE. INFORMED GPS NIKKIE GARCIAS AND WINCH DERRICK OPERATOR TO ASSIST. PATIENT FINALLY AGREED TO COME OUT OF THE SHOWER. NOTIFIED, CARLITOS HONG NP, ORDERED 1mg PO ATIVAN. WILL CONTINUE TO MONITOR PATIENT.
[2019-10-27] MEDS ORDERED: LORAZEPAM 1 MG TABLET PO ONE (05:00)
[2019-10-27 06:23] LABS: BASOPHILS % (AUTO) 0.3 % (0.0-2.0); EOSINOPHILS % (AUTO) 1.4 % (0.0-6.0); HEMATOCRIT 32 % (39-51); HEMOGLOBIN 10.9 g/dL (13.5-17.5); LYMPHOCYTES # (AUTO) 1.8 /CMM (0.8-4.8); LYMPHOCYTES % (AUTO) 16.9 % (20.0-44.0); MEAN CORPUSCULAR HGB CONC 35 g/dl (31.0-36.0); MEAN CORPUSCULAR VOLUME 96 fL (80-96); MONOCYTES # (AUTO) 1.3 /CMM (0.1-1.30); MONOCYTES % (AUTO) 11.9 % (2.0-12.0); NEUTROPHILS # (AUTO) 7.6 /CMM (1.8-8.9); NEUTROPHILS % (AUTO) 69.5 % (43.0-81.0); PLATELET COUNT (AUTO) 252 /CMM (150-450); WHITE BLOOD COUNT (AUTO) 10.9 K/uL (4.3-11.0)
[2019-10-27 06:32] LABS: CALCIUM, SERUM 7.8 mg/dL (8.5-10.1); CREATININE 5.2 mg/dL (0.6-1.3); MAGNESIUM 2.2 mg/dL (1.8-2.4); PHOSPHORUS 3.5 mg/dL (2.5-4.9); POTASSIUM 4.6 mmol/L (3.5-5.1)
--- NOTE | 2019-10-27 07:07 | NUR ---
MS RN NOTES PATIENT IN BED SLEEPING. EASILY AWAKEN BY LIGHT TOUCH. PATIENT ON ROOM AIR WITH NO SIGNS OF RESPIRATORY DISTRESS AND NO SIGNS OF SOB PRESENT. RIGHT UPPER ARM MIDLINE INTACT AND PATENT. MET ALL OF PATIENT'S NEEDS. SAFETY PRECAUTIONS IN PLACE WITH BED IN THE LOWEST POSITION, BED LOCKED, BILATERAL SIDE RAILS UP, AND CALL LIGHT WITHIN EASY REACH OF THE PATIENT. WILL ENDORSE PLAN OF CARE TO UPCOMING DAYSHIFT NURSE.
[2019-10-27 08:00] VITALS: BP 143/88
[2019-10-27 11:10] LABS: *ANA ANTI-CENTROMERE B AB <0.2 AI (0.0-0.9); *ANA ANTI-DNA(DS) AB, QN 6 IU/mL (0-9); *ANA ANTI-JO-1 <0.2 AI (0.0-0.9); *ANA ANTICHROMATIN ANTIBODY <0.2 AI (0.0-0.9); *ANA RNP ANTIBODIES <0.2 AI (0.0-0.9); *ANA SJOGREN'S ANTI-SS-A <0.2 AI (0.0-0.9); *ANA SJOGREN'S ANTI-SS-B <0.2 AI (0.0-0.9); *ANAANTI-SCLERODERMA-70 AB <0.2 AI (0.0-0.9); *ANASMITH AB <0.2 AI (0.0-0.9)
[2019-10-27] MEDS: Sodium Bicarbonate 100 MEQ in IV D5/0.45 NACL 1,000 ML IV PRN (12:39)
[2019-10-27] MEDS ORDERED: IV NS 0.9% 1,000 ML IV PRN (13:31)
--- NOTE | 2019-10-27 14:51 | NUR ---
AMA NOTE PATIENT LEFT AMA. PATIENT HAS BEEN AGITATED, YELLING, AND BECOMING HOSTILE WITH STAFF THROUGHOUT SHIFT. ROSALINDA THOMAS CAME AND SPOKE WITH THE PATIENT. PATIENT STATED HE WANTS TO LEAVE AMA AND GO HOME. PER THE PATIENT HE STATED "FORGET ALL THIS BULLSHIT, I JUST WANT TO LEAVE ALREADY". EDUCATED RISKS VS BENEFITS AND PATIENT CONTINUED TO STATE HE WANTS TO LEAVE. ROSALINDA THOMAS ALSO EDUCATED IMPORTANCE FOR PATIENT TO REMAIN COMPLIANT WITH CARE. PATIENT REFUSED. PATIENT IN NO ACUTE MEDICAL DISTRESS. NO SOB NOTED. PATIENT BREATHING IS EVEN AND UNLABORED. PATIENT IV REMOVED. ID BAND REMOVED. PATIENT HAS ALL BELONGINGS WITH HIM. PATIENT REFUSED SKIN ASSESSMENT. PATIENT GIVEN WITH BUS PASS TO GET HOME. PROVIDED TSHIRT FOR PATIENT. PATIENT AMBULATORY WITH STEADY GAIT GOING TO BUS STOP. AWARE.
== END 2019-10-27 15:00 | disposition left against medical advice (07) | DRG 917 ==
LOC: ER 13:33 → TELE1 21:08 → TELE 10-23 09:53 → MED 10-24 09:56
PROVIDERS: ADMIT Nurse Practitioner Acute Care; ATTEND Nurse Practitioner Acute Care
PROC: 05HY33Z Insertion of Infusion Device into Upper Vein, Percutaneous Approach (ICD-10-PCS; principal; 2019-10-23)
PROC: 05HY33Z Insertion of Infusion Device into Upper Vein, Percutaneous Approach (ICD-10-PCS; 2019-10-26)
DX: T43.621A Poisoning by amphetamines, accidental (unintentional), initial encounter (principal); N17.0 Acute kidney failure with tubular necrosis; G92 Toxic encephalopathy; M62.82 Rhabdomyolysis; N18.9 Chronic kidney disease, unspecified; E86.9 Volume depletion, unspecified; F15.10 Other stimulant abuse, uncomplicated; D72.823 Leukemoid reaction; D89.2 Hypergammaglobulinemia, unspecified; B19.20 Unspecified viral hepatitis C without hepatic coma; Y92.89 Other specified places as the place of occurrence of the external cause
CPT/HCPCS: 36410; 36415; 71045-TC; 76770-TC; 80048-TC; 80053-TC; 80061-TC; 80076-TC; 80305; 81000-TC; 82550-TC; 82553; 82570-TC; 83735-TC; 84100-TC; 84155-TC; 84300-TC; 85025-TC; 85652-TC; 86225; 86235; 86706; 86803; 87081-TC; 87340; A4349; G0378; G0480; J1200; J1630; J2060; J3490; J7030; U0003-CS